=== PATIENT | male | born 1945 | race Caucasian/White ===

== ENCOUNTER 2023-05-23 13:44 | Inpatient (IN) | payer MEDICARE, BC ==
[~2023-05-23] VITALS: Ht 185.4 cm; Wt 73.5 kg
[2023-05-23] MEDS ORDERED: MIRA50TA PO (14:03)
[2023-05-23] MEDS ORDERED: CLON1TAB12 PO (14:03)
[2023-05-23] MEDS ORDERED: DULO60CA45 PO (14:03)
[2023-05-23] MEDS ORDERED: DIVA-78 PO (14:03)
[2023-05-23] MEDS ORDERED: THIA50TA10 PO (14:03)
[2023-05-23 14:16] LABS: BASOPHILS % (AUTO) 0.6 % (0.0-2.0); EOSINOPHILS % (AUTO) 0.5 % (0.0-7.0); HEMATOCRIT 41.4 % (36.7-47.1); HEMOGLOBIN 14.2 g/dL (12.5-16.3); LYMPHOCYTES # (AUTO) 0.3 K/uL (0.8-4.8); LYMPHOCYTES % (AUTO) 9.6 % (20.5-51.5); MEAN CORPUSCULAR HEMOGLOBIN 31.4 uug (23.8-33.4); MEAN CORPUSCULAR HGB CONC 34 g/dL (32.5-36.3); MEAN CORPUSCULAR VOLUME 91.7 fL (73.0-96.2); MONOCYTES # (AUTO) 0.5 K/uL (0.1-1.30); NEUTROPHILS # (AUTO) 2.5 K/uL (1.8-8.9); NEUTROPHILS % (AUTO) 75.3 % (38.5-71.5); PLATELET COUNT (AUTO) 90 K/uL (152-348); RED BLOOD CELL COUNT(AUTO) 4.52 MIL/uL (4.06-5.63); RED CELL DISTRIBUTION WIDTH 15.4 % (12.1-16.2); WHITE BLOOD COUNT (AUTO) 3.3 K/uL (3.6-10.2)
[2023-05-23 14:18] LABS: DIFFERENTIAL COMMENT 1
[2023-05-23 14:31] LABS: CALCIUM 9.2 mg/dL (8.5-10.1); CARBON DIOXIDE 26 mmol/L (21-32); CHLORIDE 108 mmol/L (98-107); CREATININE 0.9 mg/dL (0.6-1.3); GLUCOSE 108 mg/dL (74-106); SODIUM SERUM 143 mmol/L (136-145); UREA NITROGEN, BLOOD 20 mg/dL (7-18)
[2023-05-23 14:43] LABS: ETHANOL < 3 MG/DL (0-10)
[2023-05-23 14:45] LABS: ALANINE AMINOTRANSFERASE 34 U/L (16-63); ALBUMIN 3.6 g/dL (3.4-5.0); ALKALINE PHOSPHATASE 73 U/L (50-136); ASPARTATE AMINOTRANSFERASE 34 U/L (15-37); BILIRUBIN,DIRECT 0.4 mg/dL (0.0-0.2); BILIRUBIN,TOTAL 1.6 mg/dL (0.2-1.0); TOTAL PROTEIN, SERUM 6.4 g/dL (6.4-8.2)
[2023-05-23 14:46] LABS: THYROID STIMULATING HORMONE 1.634 mIU/mL (0.358-3.740)
[2023-05-23] MEDS ORDERED: diphenhydrAMINE 50 MG/1 ML VIAL ONE (16:14)
[2023-05-23] MEDS ORDERED: HALOPERIDOL LACTATE 5 MG/1 ML VIAL ONE (16:14)
[2023-05-23] MEDS ORDERED: LORAZEPAM 2 MG/1 ML VIAL ONE (16:14)
[2023-05-23] MEDS ORDERED: LORAZEPAM 2 MG/1 ML VIAL IM ONE (16:15)
[2023-05-23] MEDS ORDERED: HALOPERIDOL LACTATE 5 MG/1 ML VIAL IM ONE (16:15)
[2023-05-23] MEDS ORDERED: diphenhydrAMINE 50 MG/1 ML VIAL IM ONE (16:15)
[2023-05-23 21:45] VITALS: BP 135/76; TEMP 97.6; O2SAT 98
[2023-05-23] MEDS ORDERED: MAG HYDROX/AL HYDROX/SIMETH 30 ML LIQUID UDC PO PRN (22:15)
[2023-05-23] MEDS ORDERED: MAGNESIUM HYDROXIDE 30 ML LIQUID UDC PO PRN (22:15)
[2023-05-23] MEDS ORDERED: CLOP75TA33 PO (22:42)
[2023-05-23] MEDS ORDERED: EZET10TA15 PO (22:42)
[2023-05-23] MEDS ORDERED: ATOR80TA PO (22:42)
[2023-05-23] MEDS ORDERED: TAMS-3 PO (22:42)
[2023-05-23] MEDS ORDERED: ASPI-495 PO (22:42)
[2023-05-23] MEDS: CLONAZEPAM 0.5 MG TABLET PO PRN (23:20)
[2023-05-24] MEDS: TEMAZEPAM 7.5 MG CAPSULE PO PRN (01:25)
[2023-05-24 07:55] VITALS: BP 198/173; TEMP 98.2; O2SAT 98
[2023-05-24] MEDS: CLONAZEPAM 0.5 MG TABLET PO PRN (08:56)
[2023-05-24] MEDS: hydrALAZINE HCL 25 MG TABLET PO PRN ×2 (08:57→09:31)
[2023-05-24] MEDS: CLONAZEPAM 1 MG TABLET PO SCH ×2 (09:30→16:58)
[2023-05-24] MEDS: ACETAMINOPHEN 325 MG TABLET PO PRN (09:31)
[2023-05-24] MEDS: DULOXETINE 60 MG CAPSULE.DR PO SCH (10:20)
[2023-05-24] MEDS: DIVALPROEX SPRINKLE 125 MG CAP.SPRINK PO SCH ×2 (10:20→20:51)
[2023-05-24 15:16] VITALS: BP 102/72; TEMP 98.2; O2SAT 96
[2023-05-24 19:57] VITALS: BP 136/76; TEMP 98.1; O2SAT 96
[2023-05-24] MEDS: OLANZAPINE ZYDIS 5 MG TAB.RAPDIS PO SCH (20:51)
[2023-05-24] MEDS: DONEPEZIL 5 MG TABLET PO SCH (20:51)
[2023-05-24] MEDS: ATORVASTATIN 40 MG TABLET PO SCH (20:52)
[2023-05-25] MEDS: TEMAZEPAM 7.5 MG CAPSULE PO PRN ×2 (00:01→21:53)
[2023-05-25 08:17] VITALS: BP 126/66; TEMP 97.2; O2SAT 97
[2023-05-25] MEDS ORDERED: Medication Not On Formulary EA (Mirabegron (Myrbetriq) 50 MG) PO SCH (09:00)
[2023-05-25] MEDS ORDERED: ASPIRIN EC 81 MG TABLET.DR PO SCH (09:00)
[2023-05-25] MEDS ORDERED: CLOPIDOGREL 75 MG TABLET PO SCH (09:00)
[2023-05-25] MEDS: THIAMINE HCL 100 MG TABLET PO SCH (09:06)
[2023-05-25] MEDS: DULOXETINE 60 MG CAPSULE.DR PO SCH (09:06)
[2023-05-25] MEDS: DIVALPROEX SPRINKLE 125 MG CAP.SPRINK PO SCH ×2 (09:06→20:47)
[2023-05-25] MEDS: CLONAZEPAM 1 MG TABLET PO SCH ×2 (09:07→17:45)
[2023-05-25] MEDS: EZETIMIBE 10 MG TABLET PO SCH (09:07)
[2023-05-25] MEDS: TOLTERODINE LA 2 MG CAP.SR.24H PO SCH (09:19)
[2023-05-25 16:01] VITALS: BP 125/71; TEMP 97.6; O2SAT 97
[2023-05-25 20:07] VITALS: BP 136/66; TEMP 98.1; O2SAT 96
[2023-05-25] MEDS: ATORVASTATIN 40 MG TABLET PO SCH (20:48)
[2023-05-25] MEDS: TAMSULOSIN HCL 0.4 MG CAP.SR.24H PO SCH (20:48)
[2023-05-25] MEDS: OLANZAPINE ZYDIS 5 MG TAB.RAPDIS PO SCH (20:48)
[2023-05-25] MEDS: DONEPEZIL 5 MG TABLET PO SCH (21:17)
[2023-05-26] MEDS: ACETAMINOPHEN 325 MG TABLET PO PRN (03:31)
[2023-05-26] MEDS: CLONAZEPAM 0.5 MG TABLET PO PRN ×2 (03:31→19:34)
[2023-05-26 06:44] LABS: BASOPHILS % (AUTO) 0.3 % (0.0-2.0); EOSINOPHILS % (AUTO) 0.1 % (0.0-7.0); HEMATOCRIT 41.8 % (36.7-47.1); HEMOGLOBIN 14.8 g/dL (12.5-16.3); LYMPHOCYTES # (AUTO) 0.8 K/uL (0.8-4.8); LYMPHOCYTES % (AUTO) 9.2 % (20.5-51.5); MEAN CORPUSCULAR HEMOGLOBIN 32.4 uug (23.8-33.4); MEAN CORPUSCULAR HGB CONC 35 g/dL (32.5-36.3); MEAN CORPUSCULAR VOLUME 91.5 fL (73.0-96.2); MONOCYTES # (AUTO) 1.6 K/uL (0.1-1.30); MONOCYTES % (AUTO) 17.9 % (0.0-11.0); NEUTROPHILS # (AUTO) 6.4 K/uL (1.8-8.9); NEUTROPHILS % (AUTO) 72.5 % (38.5-71.5); PLATELET COUNT (AUTO) 100 K/uL (152-348); RED BLOOD CELL COUNT(AUTO) 4.57 MIL/uL (4.06-5.63); RED CELL DISTRIBUTION WIDTH 15.9 % (12.1-16.2); WHITE BLOOD COUNT (AUTO) 8.9 K/uL (3.6-10.2)
[2023-05-26 06:49] LABS: DIFFERENTIAL COMMENT 1
[2023-05-26 07:42] VITALS: BP 115/74; TEMP 98.2; O2SAT 96
[2023-05-26] MEDS: CLOPIDOGREL 75 MG TABLET PO SCH (09:00)
[2023-05-26] MEDS: DIVALPROEX SPRINKLE 125 MG CAP.SPRINK PO SCH ×2 (09:45→20:56)
[2023-05-26] MEDS: TOLTERODINE LA 2 MG CAP.SR.24H PO SCH (09:45)
[2023-05-26] MEDS: ASPIRIN EC 81 MG TABLET.DR PO SCH (09:46)
[2023-05-26] MEDS: DULOXETINE 60 MG CAPSULE.DR PO SCH (09:46)
[2023-05-26] MEDS: THIAMINE HCL 100 MG TABLET PO SCH (09:46)
[2023-05-26] MEDS: EZETIMIBE 10 MG TABLET PO SCH (09:48)
[2023-05-26 10:21] LABS: ANISOCYTOSIS 1+; BAND % (MANUAL) 2 % (0-10); LYMPHOCYTES % (MANUAL) 9 % (20-40); MONOCYTES % (MANUAL) 18 % (2-10); NEUTROPHILS % (MANUAL) 71 % (42-75); PLATELET ESTIMATE DECREASED
[2023-05-26 10:22] LABS: OVALOCYTES OCC
[2023-05-26 16:48] VITALS: BP 110/71; TEMP 98; O2SAT 97
[2023-05-26 20:14] VITALS: BP 122/69; TEMP 98; O2SAT 98
[2023-05-26] MEDS: CLONAZEPAM 1 MG TABLET PO SCH (20:55)
[2023-05-26] MEDS: ATORVASTATIN 40 MG TABLET PO SCH (20:56)
[2023-05-26] MEDS: OLANZAPINE ZYDIS 5 MG TAB.RAPDIS PO SCH (20:56)
[2023-05-26] MEDS: TAMSULOSIN HCL 0.4 MG CAP.SR.24H PO SCH (20:56)
[2023-05-26] MEDS: DONEPEZIL 5 MG TABLET PO SCH (20:56)
[2023-05-26] MEDS ORDERED: CLONAZEPAM 1 MG TABLET PO SCH (21:00)
[2023-05-26] MEDS: TEMAZEPAM 7.5 MG CAPSULE PO PRN (22:49)
[2023-05-27] MEDS: CLONAZEPAM 0.5 MG TABLET PO PRN ×2 (00:58→17:00)
[2023-05-27 07:45] LABS: BASOPHILS % (AUTO) 0.5 % (0.0-2.0); DIFFERENTIAL COMMENT 0; EOSINOPHILS % (AUTO) 0.3 % (0.0-7.0); HEMATOCRIT 41.1 % (36.7-47.1); HEMOGLOBIN 14.5 g/dL (12.5-16.3); LYMPHOCYTES # (AUTO) 0.7 K/uL (0.8-4.8); LYMPHOCYTES % (AUTO) 11.1 % (20.5-51.5); MEAN CORPUSCULAR HEMOGLOBIN 32.3 uug (23.8-33.4); MEAN CORPUSCULAR HGB CONC 35 g/dL (32.5-36.3); MEAN CORPUSCULAR VOLUME 91.3 fL (73.0-96.2); MONOCYTES # (AUTO) 1.3 K/uL (0.1-1.30); MONOCYTES % (AUTO) 20.7 % (0.0-11.0); NEUTROPHILS # (AUTO) 4.3 K/uL (1.8-8.9); NEUTROPHILS % (AUTO) 67.4 % (38.5-71.5); PLATELET COUNT (AUTO) 88 K/uL (152-348); RED CELL DISTRIBUTION WIDTH 15.6 % (12.1-16.2); WHITE BLOOD COUNT (AUTO) 6.4 K/uL (3.6-10.2)
[2023-05-27 07:54] VITALS: BP 126/71; TEMP 98.3; O2SAT 96
[2023-05-27] MEDS: ASPIRIN EC 81 MG TABLET.DR PO SCH (08:42)
[2023-05-27] MEDS: THIAMINE HCL 100 MG TABLET PO SCH (08:42)
[2023-05-27] MEDS: DIVALPROEX SPRINKLE 125 MG CAP.SPRINK PO SCH ×2 (08:42→20:45)
[2023-05-27] MEDS: CLOPIDOGREL 75 MG TABLET PO SCH (08:42)
[2023-05-27] MEDS: EZETIMIBE 10 MG TABLET PO SCH (08:42)
[2023-05-27] MEDS: TOLTERODINE LA 2 MG CAP.SR.24H PO SCH (08:42)
[2023-05-27] MEDS: DULOXETINE 60 MG CAPSULE.DR PO SCH (08:42)
[2023-05-27] MEDS: ACETAMINOPHEN 325 MG TABLET PO PRN (09:45)
[2023-05-27 10:41] LABS: ANISOCYTOSIS 1+; LYMPHOCYTES % (MANUAL) 13 % (20-40); MONOCYTES % (MANUAL) 16 % (2-10); NEUTROPHILS % (MANUAL) 71 % (42-75); PLATELET ESTIMATE MARKED DECREASED
[2023-05-27 16:03] VITALS: BP 117/75; TEMP 98.2; O2SAT 97
[2023-05-27 19:49] VITALS: BP 124/74; TEMP 98; O2SAT 96
[2023-05-27] MEDS: CLONAZEPAM 1 MG TABLET PO SCH (20:46)
[2023-05-27] MEDS: DONEPEZIL 5 MG TABLET PO SCH (20:46)
[2023-05-27] MEDS: OLANZAPINE ZYDIS 5 MG TAB.RAPDIS PO SCH (20:46)
[2023-05-27] MEDS: TAMSULOSIN HCL 0.4 MG CAP.SR.24H PO SCH (20:46)
[2023-05-27] MEDS: ATORVASTATIN 40 MG TABLET PO SCH (20:47)
[2023-05-28 08:03] LABS: BASOPHILS % (AUTO) 0.3 % (0.0-2.0); EOSINOPHILS % (AUTO) 0.7 % (0.0-7.0); HEMATOCRIT 40.7 % (36.7-47.1); HEMOGLOBIN 14.2 g/dL (12.5-16.3); LYMPHOCYTES # (AUTO) 0.7 K/uL (0.8-4.8); LYMPHOCYTES % (AUTO) 11.4 % (20.5-51.5); MEAN CORPUSCULAR HGB CONC 35 g/dL (32.5-36.3); MEAN CORPUSCULAR VOLUME 91.9 fL (73.0-96.2); MONOCYTES # (AUTO) 1.3 K/uL (0.1-1.30); NEUTROPHILS # (AUTO) 4.3 K/uL (1.8-8.9); NEUTROPHILS % (AUTO) 66.6 % (38.5-71.5); PLATELET COUNT (AUTO) 102 K/uL (152-348); RED BLOOD CELL COUNT(AUTO) 4.43 MIL/uL (4.06-5.63); RED CELL DISTRIBUTION WIDTH 15.9 % (12.1-16.2); WHITE BLOOD COUNT (AUTO) 6.4 K/uL (3.6-10.2)
[2023-05-28 08:06] LABS: DIFFERENTIAL COMMENT 1
[2023-05-28] MEDS: TOLTERODINE LA 2 MG CAP.SR.24H PO SCH (08:12)
[2023-05-28] MEDS: EZETIMIBE 10 MG TABLET PO SCH (08:12)
[2023-05-28] MEDS: DIVALPROEX SPRINKLE 125 MG CAP.SPRINK PO SCH ×2 (08:13→20:25)
[2023-05-28] MEDS: DULOXETINE 60 MG CAPSULE.DR PO SCH (08:13)
[2023-05-28] MEDS: THIAMINE HCL 100 MG TABLET PO SCH (08:13)
[2023-05-28] MEDS: ENSURE ENLIVE (VAN) 240 ML LIQUID PO SCH (08:13)
[2023-05-28] MEDS: CLONAZEPAM 0.5 MG TABLET PO PRN ×2 (08:17→20:25)
[2023-05-28 08:28] VITALS: BP 106/70; TEMP 98.2; O2SAT 98
[2023-05-28 15:30] VITALS: BP 105/74; TEMP 97.8; O2SAT 98
[2023-05-28 20:00] VITALS: BP 124/70; TEMP 98; O2SAT 96
[2023-05-28] MEDS: ATORVASTATIN 40 MG TABLET PO SCH (20:25)
[2023-05-28] MEDS: DONEPEZIL 5 MG TABLET PO SCH (20:25)
[2023-05-28] MEDS: TAMSULOSIN HCL 0.4 MG CAP.SR.24H PO SCH (20:25)
[2023-05-28] MEDS: OLANZAPINE ZYDIS 5 MG TAB.RAPDIS PO SCH (20:25)
[2023-05-28] MEDS: CLONAZEPAM 1 MG TABLET PO SCH (21:08)
[2023-05-29 07:51] VITALS: BP 101/56; TEMP 98.2; O2SAT 98
[2023-05-29] MEDS: TOLTERODINE LA 2 MG CAP.SR.24H PO SCH (08:10)
[2023-05-29] MEDS: THIAMINE HCL 100 MG TABLET PO SCH (08:10)
[2023-05-29] MEDS: DIVALPROEX SPRINKLE 125 MG CAP.SPRINK PO SCH (08:10)
[2023-05-29] MEDS: DULOXETINE 60 MG CAPSULE.DR PO SCH (08:10)
[2023-05-29] MEDS: EZETIMIBE 10 MG TABLET PO SCH (08:10)
[2023-05-29] MEDS: ENSURE ENLIVE (VAN) 240 ML LIQUID PO SCH (09:00)
[2023-05-29] MEDS ORDERED: CLOPIDOGREL 75 MG TABLET PO SCH (09:00)
[2023-05-29] MEDS ORDERED: DONE5TAB34 PO (14:23)
[2023-05-29] MEDS ORDERED: HYDR-894 PO (14:24)
[2023-05-29] MEDS ORDERED: TEMA7.5C PO (14:28)
[2023-05-29] MEDS ORDERED: DIVA125C2 PO (14:29)
[2023-05-29] MEDS ORDERED: DULO60CA64 PO (14:31)
[2023-05-29] MEDS ORDERED: OLAN5TAB6 PO (14:33)
[2023-05-29] MEDS ORDERED: CLON1TAB PO (14:37)
[2023-05-29] MEDS ORDERED: CLON0.5T PO (14:37)
[2023-05-30 12:52] LABS: NEUTROPHILS % (MANUAL) 59 % (42-75)
[2023-05-30 12:53] LABS: BAND % (MANUAL) 4 % (0-10); EOSINOPHILS % (MANUAL) 1 % (0-8); LYMPHOCYTES % (MANUAL) 9 % (20-40); MONOCYTES % (MANUAL) 14 % (2-10); PLATELET ESTIMATE DECREASED
[2023-05-30 12:55] LABS: LYMPHOCYTES % (MANUAL) 0 % (20-40); NEUTROPHILS % (MANUAL) 0 % (42-75)
== END 2023-05-29 12:15 | disposition short-term general hospital (02) | DRG 885 ==
LOC: ER 13:44 → GPS 21:27
PROVIDERS: ADMIT Psychiatry & Neurology Psychiatry; ATTEND Nurse Practitioner Acute Care
DX: F29 Unspecified psychosis not due to a substance or known physiological condition (principal); G93.41 Metabolic encephalopathy; E51.2 Wernicke's encephalopathy; R45.851 Suicidal ideations; F03.94 Unspecified dementia, unspecified severity, with anxiety; F03.93 Unspecified dementia, unspecified severity, with mood disturbance; F10.11 Alcohol abuse, in remission; E78.5 Hyperlipidemia, unspecified; I25.10 Atherosclerotic heart disease of native coronary artery without angina pectoris; N40.0 Benign prostatic hyperplasia without lower urinary tract symptoms; R26.81 Unsteadiness on feet; R79.89 Other specified abnormal findings of blood chemistry; Z95.5 Presence of coronary angioplasty implant and graft; I10 Essential (primary) hypertension; Z87.820 Personal history of traumatic brain injury; Z91.040 Latex allergy status; Z79.82 Long term (current) use of aspirin; Z79.02 Long term (current) use of antithrombotics/antiplatelets; Z79.899 Other long term (current) drug therapy
CPT/HCPCS: 36415; 70030-TC; 70450; 72170; 73130; 82747; 83921; 84443; 85014; 85025; 85651; 93005; G0480; J1200; J1630; J2060

== ENCOUNTER 2023-05-29 12:26 | Inpatient (IN) | payer MEDICARE, BC ==
[~2023-05-29] VITALS: Ht 185.4 cm; Wt 73.5 kg
[~2023-05-29 12:26] MED LIST: ASPI-495 PO; ATOR80TA PO; CLOP75TA33 PO; EZET10TA15 PO; MIRA50TA PO; TAMS-3 PO; THIA50TA10 PO
[2023-05-29] MEDS ORDERED: MAG HYDROX/AL HYDROX/SIMETH 30 ML LIQUID UDC PO PRN (13:15)
[2023-05-29] MEDS ORDERED: TEMAZEPAM 7.5 MG CAPSULE PO PRN ×2 (13:15→13:45)
[2023-05-29] MEDS ORDERED: ACETAMINOPHEN 325 MG TABLET PO PRN ×2 (13:15→14:15)
[2023-05-29] MEDS ORDERED: MAGNESIUM HYDROXIDE 30 ML LIQUID UDC PO PRN (13:15)
[2023-05-29] MEDS ORDERED: ONDANSETRON 4 MG/2 ML VIAL IV PRN (14:15)
[2023-05-29] MEDS ORDERED: REMEDY ESSENTIAL ZINC PASTE 113 GM TP PRN (14:15)
[2023-05-29] MEDS ORDERED: DONE5TAB34 PO (14:23)
[2023-05-29] MEDS ORDERED: HYDR-894 PO (14:24)
[2023-05-29] MEDS ORDERED: TEMA7.5C PO (14:28)
[2023-05-29] MEDS ORDERED: DIVA125C2 PO (14:29)
[2023-05-29] MEDS ORDERED: DULO60CA64 PO (14:31)
[2023-05-29] MEDS ORDERED: OLAN5TAB6 PO (14:33)
[2023-05-29] MEDS ORDERED: CLON0.5T PO (14:37)
[2023-05-29] MEDS ORDERED: CLON1TAB PO (14:37)
[2023-05-29 16:00] VITALS: BP 108/73; TEMP 98; O2SAT 97
[2023-05-29] MEDS ORDERED: hydrALAZINE HCL 25 MG TABLET PO PRN (16:00)
[2023-05-29] MEDS: CLONAZEPAM 0.5 MG TABLET PO PRN (18:22)
[2023-05-29 20:40] VITALS: BP 111/64; TEMP 97.3; O2SAT 92
[2023-05-29] MEDS: OLANZAPINE ZYDIS 5 MG TAB.RAPDIS PO SCH (20:53)
[2023-05-29] MEDS: DIVALPROEX SPRINKLE 125 MG CAP.SPRINK PO SCH (20:53)
[2023-05-29] MEDS: DONEPEZIL 5 MG TABLET PO SCH (20:53)
[2023-05-29] MEDS: TAMSULOSIN HCL 0.4 MG CAP.SR.24H PO SCH (20:53)
[2023-05-29] MEDS: CLONAZEPAM 1 MG TABLET PO SCH (20:53)
[2023-05-29] MEDS: ATORVASTATIN 40 MG TABLET PO SCH (20:53)
[2023-05-30 04:00] VITALS: BP 113/61; TEMP 97.5; O2SAT 93
[2023-05-30 07:15] LABS: BASOPHILS % (AUTO) 0.2 % (0.0-2.0); EOSINOPHILS % (AUTO) 0.5 % (0.0-7.0); HEMATOCRIT 34.6 % (36.7-47.1); HEMOGLOBIN 12.2 g/dL (12.5-16.3); LYMPHOCYTES # (AUTO) 0.8 K/uL (0.8-4.8); LYMPHOCYTES % (AUTO) 10.8 % (20.5-51.5); MEAN CORPUSCULAR HEMOGLOBIN 32.5 uug (23.8-33.4); MEAN CORPUSCULAR HGB CONC 35 g/dL (32.5-36.3); MEAN CORPUSCULAR VOLUME 92.3 fL (73.0-96.2); MONOCYTES # (AUTO) 1.7 K/uL (0.1-1.30); MONOCYTES % (AUTO) 22.7 % (0.0-11.0); NEUTROPHILS # (AUTO) 5.1 K/uL (1.8-8.9); NEUTROPHILS % (AUTO) 65.8 % (38.5-71.5); PLATELET COUNT (AUTO) 94 K/uL (152-348); RED BLOOD CELL COUNT(AUTO) 3.75 MIL/uL (4.06-5.63); RED CELL DISTRIBUTION WIDTH 15.5 % (12.1-16.2); WHITE BLOOD COUNT (AUTO) 7.7 K/uL (3.6-10.2)
[2023-05-30 07:27] LABS: CARBON DIOXIDE 32 mmol/L (21-32); CHLORIDE 112 mmol/L (98-107); CREATININE 0.7 mg/dL (0.6-1.3); GLUCOSE 94 mg/dL (74-106); MAGNESIUM 2.4 mg/dL (1.8-2.4); PHOSPHOROUS 2.9 mg/dL (2.5-4.9); POTASSIUM 3.6 mmol/L (3.5-5.1); SODIUM SERUM 147 mmol/L (136-145); UREA NITROGEN, BLOOD 36 mg/dL (7-18)
[2023-05-30 07:28] LABS: DIFFERENTIAL COMMENT 1
[2023-05-30 07:57] LABS: CALCIUM 9.2 mg/dL (8.5-10.1)
[2023-05-30] MEDS: TOLTERODINE LA 2 MG CAP.SR.24H PO SCH (08:57)
[2023-05-30] MEDS: THIAMINE HCL 100 MG TABLET PO SCH (08:57)
[2023-05-30] MEDS: DIVALPROEX SPRINKLE 125 MG CAP.SPRINK PO SCH ×2 (08:57→21:19)
[2023-05-30] MEDS: EZETIMIBE 10 MG TABLET PO SCH (08:57)
[2023-05-30] MEDS: ENSURE CLEAR 240 ML LIQUID (MIX BERRY) PO SCH (08:57)
[2023-05-30] MEDS: DULOXETINE 60 MG CAPSULE.DR PO SCH (08:57)
[2023-05-30] MEDS ORDERED: CLOPIDOGREL 75 MG TABLET PO SCH ×2 (09:00)
[2023-05-30] MEDS ORDERED: LORAZEPAM 1 MG TABLET PO ONE (09:15)
[2023-05-30 12:56] LABS: BAND % (MANUAL) 4 % (0-10); EOSINOPHILS % (MANUAL) 1 % (0-8); LYMPHOCYTES % (MANUAL) 9 % (20-40); MONOCYTES % (MANUAL) 14 % (2-10); NEUTROPHILS % (MANUAL) 59 % (42-75)
[2023-05-30 12:57] LABS: PLATELET ESTIMATE DECREASED
[2023-05-30] MEDS: CLONAZEPAM 0.5 MG TABLET PO PRN (13:27)
[2023-05-30 15:22] VITALS: BP 109/45; TEMP 98.2; O2SAT 98
[2023-05-30 20:00] VITALS: BP 109/58; TEMP 98.3; O2SAT 93
[2023-05-30] MEDS: OLANZAPINE ZYDIS 5 MG TAB.RAPDIS PO SCH (21:18)
[2023-05-30] MEDS: TAMSULOSIN HCL 0.4 MG CAP.SR.24H PO SCH (21:18)
[2023-05-30] MEDS: ATORVASTATIN 40 MG TABLET PO SCH (21:18)
[2023-05-30] MEDS: CLONAZEPAM 1 MG TABLET PO SCH (21:18)
[2023-05-30] MEDS: DONEPEZIL 5 MG TABLET PO SCH (21:18)
[2023-05-31 04:00] VITALS: BP 111/56; TEMP 98.2; O2SAT 93
[2023-05-31 07:30] LABS: BASOPHILS % (AUTO) 0.3 % (0.0-2.0); EOSINOPHILS % (AUTO) 0.3 % (0.0-7.0); HEMATOCRIT 36.4 % (36.7-47.1); HEMOGLOBIN 12.8 g/dL (12.5-16.3); LYMPHOCYTES # (AUTO) 1.1 K/uL (0.8-4.8); MEAN CORPUSCULAR HEMOGLOBIN 32.7 uug (23.8-33.4); MEAN CORPUSCULAR HGB CONC 35 g/dL (32.5-36.3); MONOCYTES # (AUTO) 2.3 K/uL (0.1-1.30); MONOCYTES % (AUTO) 22.2 % (0.0-11.0); NEUTROPHILS # (AUTO) 6.7 K/uL (1.8-8.9); NEUTROPHILS % (AUTO) 66.2 % (38.5-71.5); PLATELET COUNT (AUTO) 108 K/uL (152-348); RED BLOOD CELL COUNT(AUTO) 3.91 MIL/uL (4.06-5.63); RED CELL DISTRIBUTION WIDTH 15.8 % (12.1-16.2); WHITE BLOOD COUNT (AUTO) 10.2 K/uL (3.6-10.2)
[2023-05-31 07:38] LABS: CALCIUM 8.6 mg/dL (8.5-10.1); CARBON DIOXIDE 30 mmol/L (21-32); CHLORIDE 113 mmol/L (98-107); CREATININE 0.7 mg/dL (0.6-1.3); GLUCOSE 83 mg/dL (74-106); MAGNESIUM 2.3 mg/dL (1.8-2.4); PHOSPHOROUS 2.9 mg/dL (2.5-4.9); POTASSIUM 3.4 mmol/L (3.5-5.1); SODIUM SERUM 146 mmol/L (136-145); UREA NITROGEN, BLOOD 30 mg/dL (7-18)
[2023-05-31 07:39] LABS: DIFFERENTIAL COMMENT 1
[2023-05-31 08:14] LABS: LYMPHOCYTES % (MANUAL) 0 % (20-40); NEUTROPHILS % (MANUAL) 0 % (42-75)
[2023-05-31] MEDS: THIAMINE HCL 100 MG TABLET PO SCH (08:44)
[2023-05-31] MEDS: DULOXETINE 60 MG CAPSULE.DR PO SCH (08:44)
[2023-05-31] MEDS: TOLTERODINE LA 2 MG CAP.SR.24H PO SCH (08:44)
[2023-05-31] MEDS: EZETIMIBE 10 MG TABLET PO SCH (08:44)
[2023-05-31] MEDS: DIVALPROEX SPRINKLE 125 MG CAP.SPRINK PO SCH ×2 (08:45→21:26)
[2023-05-31] MEDS: ENSURE CLEAR 240 ML LIQUID (MIX BERRY) PO SCH (08:46)
[2023-05-31] MEDS ORDERED: POTASSIUM CHLORIDE 20 MEQ TAB.PRT.SR PO ONE (11:00)
[2023-05-31 11:14] VITALS: BP 126/68; TEMP 98.5; O2SAT 95
[2023-05-31] MEDS ORDERED: GADOTERATE MEGLUMINE 10 MMOL/20 ML VIAL IV ONE (14:44)
[2023-05-31 16:20] VITALS: BP 116/62; TEMP 98.7; O2SAT 94
[2023-05-31] MEDS: ENSURE ENLIVE (VAN) 240 ML LIQUID PO SCH (17:45)
[2023-05-31 20:05] VITALS: BP 107/51; TEMP 97.6; O2SAT 94
[2023-05-31] MEDS: DONEPEZIL 5 MG TABLET PO SCH (21:26)
[2023-05-31] MEDS: OLANZAPINE ZYDIS 5 MG TAB.RAPDIS PO SCH (21:26)
[2023-05-31] MEDS: ATORVASTATIN 40 MG TABLET PO SCH (21:26)
[2023-05-31] MEDS: TAMSULOSIN HCL 0.4 MG CAP.SR.24H PO SCH (21:26)
[2023-05-31] MEDS: CLONAZEPAM 1 MG TABLET PO SCH (21:27)
[2023-06-01 04:05] VITALS: BP 102/60; TEMP 98.2; O2SAT 90
[2023-06-01 06:37] LABS: BASOPHILS % (AUTO) 0.3 % (0.0-2.0); EOSINOPHILS # (AUTO) 0.1 K/uL (0.0-0.7); EOSINOPHILS % (AUTO) 0.8 % (0.0-7.0); HEMATOCRIT 34.3 % (36.7-47.1); HEMOGLOBIN 12.3 g/dL (12.5-16.3); LYMPHOCYTES # (AUTO) 1.1 K/uL (0.8-4.8); LYMPHOCYTES % (AUTO) 14.1 % (20.5-51.5); MEAN CORPUSCULAR HGB CONC 36 g/dL (32.5-36.3); MONOCYTES # (AUTO) 1.7 K/uL (0.1-1.30); MONOCYTES % (AUTO) 22.6 % (0.0-11.0); NEUTROPHILS # (AUTO) 4.7 K/uL (1.8-8.9); NEUTROPHILS % (AUTO) 62.2 % (38.5-71.5); PLATELET COUNT (AUTO) 111 K/uL (152-348); RED BLOOD CELL COUNT(AUTO) 3.73 MIL/uL (4.06-5.63); RED CELL DISTRIBUTION WIDTH 15.4 % (12.1-16.2); WHITE BLOOD COUNT (AUTO) 7.6 K/uL (3.6-10.2)
[2023-06-01 06:38] LABS: DIFFERENTIAL COMMENT 1
[2023-06-01 06:49] LABS: CALCIUM 8.1 mg/dL (8.5-10.1); CARBON DIOXIDE 31 mmol/L (21-32); CHLORIDE 110 mmol/L (98-107); CREATININE 0.7 mg/dL (0.6-1.3); GLUCOSE 98 mg/dL (74-106); POTASSIUM 3.4 mmol/L (3.5-5.1); SODIUM SERUM 143 mmol/L (136-145); UREA NITROGEN, BLOOD 28 mg/dL (7-18)
[2023-06-01 06:50] LABS: MAGNESIUM 2.2 mg/dL (1.8-2.4)
[2023-06-01 06:51] LABS: LYMPHOCYTES % (MANUAL) 0 % (20-40); NEUTROPHILS % (MANUAL) 0 % (42-75)
[2023-06-01] MEDS: ENSURE ENLIVE (VAN) 240 ML LIQUID PO SCH ×2 (09:17→17:34)
[2023-06-01] MEDS: TOLTERODINE LA 2 MG CAP.SR.24H PO SCH (09:17)
[2023-06-01] MEDS: DIVALPROEX SPRINKLE 125 MG CAP.SPRINK PO SCH ×2 (09:17→20:47)
[2023-06-01] MEDS: EZETIMIBE 10 MG TABLET PO SCH (09:17)
[2023-06-01] MEDS: THIAMINE HCL 100 MG TABLET PO SCH (09:17)
[2023-06-01] MEDS ORDERED: POTASSIUM CHLORIDE 20 MEQ TAB.PRT.SR PO ONE (10:00)
[2023-06-01 11:34] VITALS: BP 102/56; TEMP 98.2; O2SAT 95
[2023-06-01 16:00] VITALS: BP 109/62; TEMP 98.2; O2SAT 96
[2023-06-01 20:00] VITALS: BP 125/56; TEMP 98; O2SAT 96
[2023-06-01] MEDS: CLONAZEPAM 1 MG TABLET PO SCH (20:47)
[2023-06-01] MEDS: OLANZAPINE ZYDIS 5 MG TAB.RAPDIS PO SCH (20:47)
[2023-06-01] MEDS: DONEPEZIL 5 MG TABLET PO SCH (20:47)
[2023-06-01] MEDS: ATORVASTATIN 40 MG TABLET PO SCH (20:47)
[2023-06-01] MEDS: TAMSULOSIN HCL 0.4 MG CAP.SR.24H PO SCH (20:47)
[2023-06-02] MEDS: IV 1/2NS 1000 ML 1,000 ML IV PRN (02:01)
[2023-06-02 04:00] VITALS: BP 127/62; TEMP 98.2; O2SAT 95
[2023-06-02 06:36] LABS: BASOPHILS # (AUTO) 0.1 K/UL (0.0-0.2); BASOPHILS % (AUTO) 1.7 % (0.0-2.0); EOSINOPHILS # (AUTO) 0.1 K/uL (0.0-0.7); EOSINOPHILS % (AUTO) 1.9 % (0.0-7.0); HEMATOCRIT 34.9 % (36.7-47.1); HEMOGLOBIN 12.5 g/dL (12.5-16.3); LYMPHOCYTES # (AUTO) 0.6 K/uL (0.8-4.8); LYMPHOCYTES % (AUTO) 9.6 % (20.5-51.5); MEAN CORPUSCULAR HEMOGLOBIN 32.6 uug (23.8-33.4); MEAN CORPUSCULAR HGB CONC 36 g/dL (32.5-36.3); MONOCYTES # (AUTO) 1.4 K/uL (0.1-1.30); MONOCYTES % (AUTO) 21.2 % (0.0-11.0); NEUTROPHILS # (AUTO) 4.2 K/uL (1.8-8.9); NEUTROPHILS % (AUTO) 65.6 % (38.5-71.5); PLATELET COUNT (AUTO) 120 K/uL (152-348); RED BLOOD CELL COUNT(AUTO) 3.84 MIL/uL (4.06-5.63); RED CELL DISTRIBUTION WIDTH 15.7 % (12.1-16.2); WHITE BLOOD COUNT (AUTO) 6.4 K/uL (3.6-10.2)
[2023-06-02 06:48] LABS: DIFFERENTIAL COMMENT 1
[2023-06-02 07:06] LABS: CALCIUM 8.2 mg/dL (8.5-10.1); CARBON DIOXIDE 29 mmol/L (21-32); CHLORIDE 107 mmol/L (98-107); CREATININE 0.7 mg/dL (0.6-1.3); GLUCOSE 95 mg/dL (74-106); MAGNESIUM 2.1 mg/dL (1.8-2.4); PHOSPHOROUS 2.5 mg/dL (2.5-4.9); POTASSIUM 3.5 mmol/L (3.5-5.1); SODIUM SERUM 142 mmol/L (136-145); UREA NITROGEN, BLOOD 22 mg/dL (7-18)
[2023-06-02] MEDS: EZETIMIBE 10 MG TABLET PO SCH (09:44)
[2023-06-02] MEDS: TOLTERODINE LA 2 MG CAP.SR.24H PO SCH (09:44)
[2023-06-02] MEDS: DIVALPROEX SPRINKLE 125 MG CAP.SPRINK PO SCH ×2 (09:44→20:35)
[2023-06-02] MEDS: ENSURE ENLIVE (VAN) 240 ML LIQUID PO SCH ×2 (09:45→17:01)
[2023-06-02] MEDS: THIAMINE HCL 100 MG TABLET PO SCH (09:45)
[2023-06-02 11:43] VITALS: BP 113/50; TEMP 98.2; O2SAT 97
[2023-06-02] MEDS ORDERED: LIDOCAINE HCL 1% 20 ML VIAL IJ ONE (12:00)
[2023-06-02] MEDS: NYSTATIN SUSPENSION 5 ML LIQUID UDC PO SCH ×3 (13:00→20:34)
[2023-06-02 14:28] LABS: ANISOCYTOSIS 1+; BAND % (MANUAL) 2 % (0-10); BASOPHILS % (MANUAL) 1 % (0-2); LYMPHOCYTES % (MANUAL) 16 % (20-40); MONOCYTES % (MANUAL) 25 % (2-10); NEUTROPHILS % (MANUAL) 55 % (42-75); PLATELET ESTIMATE DECREASED; REACTIVE LYMPHOCYTES 1 % (0-0)
[2023-06-02 15:44] VITALS: BP 128/52; TEMP 98.2; O2SAT 97
[2023-06-02] MEDS: OLANZAPINE ZYDIS 5 MG TAB.RAPDIS PO SCH (20:35)
[2023-06-02] MEDS: DONEPEZIL 5 MG TABLET PO SCH (20:35)
[2023-06-02] MEDS: CLONAZEPAM 1 MG TABLET PO SCH (20:35)
[2023-06-02] MEDS: ATORVASTATIN 40 MG TABLET PO SCH (20:35)
[2023-06-02] MEDS: TAMSULOSIN HCL 0.4 MG CAP.SR.24H PO SCH (20:35)
[2023-06-02 21:22] VITALS: BP 98/56; TEMP 98.6; O2SAT 98
[2023-06-03 00:15] VITALS: BP 106/58; TEMP 98; O2SAT 99
[2023-06-03 04:52] VITALS: BP 98/57; TEMP 97.8; O2SAT 100
[2023-06-03] MEDS: NYSTATIN SUSPENSION 5 ML LIQUID UDC PO SCH ×4 (08:49→21:44)
[2023-06-03] MEDS: TOLTERODINE LA 2 MG CAP.SR.24H PO SCH (08:49)
[2023-06-03] MEDS: EZETIMIBE 10 MG TABLET PO SCH (08:49)
[2023-06-03] MEDS: DIVALPROEX SPRINKLE 125 MG CAP.SPRINK PO SCH ×2 (08:49→21:44)
[2023-06-03] MEDS: THIAMINE HCL 100 MG TABLET PO SCH (08:49)
[2023-06-03] MEDS: ENSURE ENLIVE (VAN) 240 ML LIQUID PO SCH ×2 (08:50→17:01)
[2023-06-03] MEDS: IV 1/2NS 1000 ML 1,000 ML IV PRN (09:16)
[2023-06-03 11:31] VITALS: BP 115/62; TEMP 98.1; O2SAT 96
[2023-06-03 12:01] LABS: CSF APPEARANCE HAZY (CLEAR); CSF COLOR REDDISH TINGE (COLORLESS); CSF TUBE NUMBER 2
[2023-06-03 12:04] LABS: CSF GLUCOSE 60 mg/dL (40-70)
[2023-06-03 12:19] LABS: CSF PROTEIN 134 mg/dL (15-45)
[2023-06-03] MEDS: CLOPIDOGREL 75 MG TABLET PO SCH (12:25)
[2023-06-03] MEDS: CLOTRIMAZOLE 1% CREAM 30 GM TUBE TOP SCH (15:56)
[2023-06-03 16:00] VITALS: BP 94/75; TEMP 98.8; O2SAT 96
[2023-06-03 17:23] LABS: CSF WHITE BLOOD CELL COUNT 21 /cumm (0-5)
[2023-06-03 20:00] VITALS: BP 116/64; TEMP 98.3; O2SAT 94
[2023-06-03] MEDS: CLONAZEPAM 1 MG TABLET PO SCH (21:44)
[2023-06-03] MEDS: TAMSULOSIN HCL 0.4 MG CAP.SR.24H PO SCH (21:44)
[2023-06-03] MEDS: DONEPEZIL 5 MG TABLET PO SCH (21:44)
[2023-06-03] MEDS: OLANZAPINE ZYDIS 5 MG TAB.RAPDIS PO SCH (21:44)
[2023-06-03] MEDS: ATORVASTATIN 40 MG TABLET PO SCH (21:44)
[2023-06-04 04:00] VITALS: BP 98/57; TEMP 97.3; O2SAT 94
[2023-06-04 07:37] LABS: BASOPHILS % (AUTO) 0.2 % (0.0-2.0); EOSINOPHILS % (AUTO) 0.3 % (0.0-7.0); HEMATOCRIT 35.3 % (36.7-47.1); HEMOGLOBIN 12.9 g/dL (12.5-16.3); LYMPHOCYTES # (AUTO) 1.3 K/uL (0.8-4.8); LYMPHOCYTES % (AUTO) 13.2 % (20.5-51.5); MEAN CORPUSCULAR HEMOGLOBIN 33.3 uug (23.8-33.4); MEAN CORPUSCULAR HGB CONC 36 g/dL (32.5-36.3); MEAN CORPUSCULAR VOLUME 91.3 fL (73.0-96.2); MONOCYTES # (AUTO) 2.6 K/uL (0.1-1.30); MONOCYTES % (AUTO) 26.1 % (0.0-11.0); NEUTROPHILS # (AUTO) 6.1 K/uL (1.8-8.9); NEUTROPHILS % (AUTO) 60.2 % (38.5-71.5); PLATELET COUNT (AUTO) 126 K/uL (152-348); RED BLOOD CELL COUNT(AUTO) 3.87 MIL/uL (4.06-5.63); RED CELL DISTRIBUTION WIDTH 16.3 % (12.1-16.2); WHITE BLOOD COUNT (AUTO) 10.1 K/uL (3.6-10.2)
[2023-06-04 07:45] LABS: DIFFERENTIAL COMMENT 1
[2023-06-04 08:00] VITALS: BP 109/56; TEMP 98.1; O2SAT 98
[2023-06-04 08:17] LABS: CALCIUM 7.9 mg/dL (8.5-10.1); CREATININE 0.7 mg/dL (0.6-1.3); POTASSIUM 3.9 mmol/L (3.5-5.1)
[2023-06-04] MEDS: EZETIMIBE 10 MG TABLET PO SCH (08:29)
[2023-06-04] MEDS: DIVALPROEX SPRINKLE 125 MG CAP.SPRINK PO SCH ×2 (08:30→21:04)
[2023-06-04] MEDS: THIAMINE HCL 100 MG TABLET PO SCH (08:30)
[2023-06-04] MEDS: CLOPIDOGREL 75 MG TABLET PO SCH (08:30)
[2023-06-04] MEDS: TOLTERODINE LA 2 MG CAP.SR.24H PO SCH (08:30)
[2023-06-04] MEDS: ASPIRIN EC 81 MG TABLET.DR PO SCH (08:31)
[2023-06-04] MEDS: NYSTATIN SUSPENSION 5 ML LIQUID UDC PO SCH ×4 (08:31→21:10)
[2023-06-04] MEDS: ENSURE ENLIVE (VAN) 240 ML LIQUID PO SCH ×2 (08:32→17:37)
[2023-06-04] MEDS: CLOTRIMAZOLE 1% CREAM 30 GM TUBE TOP SCH ×2 (08:32→16:36)
[2023-06-04] MEDS: CEFTRIAXONE 2 G in IV DEXTROSE 5% 100 ML IV SCH ×2 (10:15→21:56)
[2023-06-04] MEDS: IV 1/2NS 1000 ML 1,000 ML IV PRN (10:24)
[2023-06-04 11:31] VITALS: BP 97/63; TEMP 98.4; O2SAT 99
[2023-06-04 11:31] LABS: ANISOCYTOSIS 1+; BAND % (MANUAL) 1 % (0-10); EOSINOPHILS % (MANUAL) 1 % (0-8); LYMPHOCYTES % (MANUAL) 12 % (20-40); MONOCYTES % (MANUAL) 15 % (2-10); NEUTROPHILS % (MANUAL) 71 % (42-75); PLATELET ESTIMATE MARKED DECREASED
[2023-06-04] MEDS ORDERED: LORAZEPAM 2 MG/1 ML VIAL IV PRN (13:45)
[2023-06-04 15:34] VITALS: BP 99/41; TEMP 98.3; O2SAT 97
[2023-06-04 20:00] VITALS: BP 109/62; TEMP 98.5; O2SAT 96
[2023-06-04] MEDS: OLANZAPINE ZYDIS 5 MG TAB.RAPDIS PO SCH (21:04)
[2023-06-04] MEDS: CLONAZEPAM 1 MG TABLET PO SCH (21:04)
[2023-06-04] MEDS: ATORVASTATIN 40 MG TABLET PO SCH (21:04)
[2023-06-04] MEDS: TAMSULOSIN HCL 0.4 MG CAP.SR.24H PO SCH (21:14)
[2023-06-04] MEDS: DONEPEZIL 5 MG TABLET PO SCH (21:14)
[2023-06-05 04:00] VITALS: BP 100/54; TEMP 97.8; O2SAT 95
[2023-06-05 06:28] LABS: BASOPHILS # (AUTO) 0.1 K/UL (0.0-0.2); BASOPHILS % (AUTO) 1.5 % (0.0-2.0); EOSINOPHILS % (AUTO) 0.3 % (0.0-7.0); HEMATOCRIT 36.1 % (36.7-47.1); HEMOGLOBIN 12.8 g/dL (12.5-16.3); LYMPHOCYTES # (AUTO) 0.8 K/uL (0.8-4.8); LYMPHOCYTES % (AUTO) 10.2 % (20.5-51.5); MEAN CORPUSCULAR HEMOGLOBIN 32.7 uug (23.8-33.4); MEAN CORPUSCULAR HGB CONC 35 g/dL (32.5-36.3); MEAN CORPUSCULAR VOLUME 92.3 fL (73.0-96.2); MONOCYTES % (AUTO) 25.4 % (0.0-11.0); NEUTROPHILS % (AUTO) 62.6 % (38.5-71.5); PLATELET COUNT (AUTO) 123 K/uL (152-348); RED BLOOD CELL COUNT(AUTO) 3.91 MIL/uL (4.06-5.63); RED CELL DISTRIBUTION WIDTH 16.3 % (12.1-16.2)
[2023-06-05 06:58] LABS: DIFFERENTIAL COMMENT 1
[2023-06-05 07:04] LABS: CREATININE 0.7 mg/dL (0.6-1.3); MAGNESIUM 2.1 mg/dL (1.8-2.4); PHOSPHOROUS 2.8 mg/dL (2.5-4.9); POTASSIUM 3.6 mmol/L (3.5-5.1)
[2023-06-05 08:00] VITALS: BP 117/60; TEMP 97.6; O2SAT 96
[2023-06-05] MEDS: EZETIMIBE 10 MG TABLET PO SCH (08:11)
[2023-06-05] MEDS: THIAMINE HCL 100 MG TABLET PO SCH (08:11)
[2023-06-05] MEDS: TOLTERODINE LA 2 MG CAP.SR.24H PO SCH (08:12)
[2023-06-05] MEDS: DIVALPROEX SPRINKLE 125 MG CAP.SPRINK PO SCH ×2 (08:12→21:50)
[2023-06-05] MEDS: NYSTATIN SUSPENSION 5 ML LIQUID UDC PO SCH ×4 (08:13→21:51)
[2023-06-05] MEDS: CLOTRIMAZOLE 1% CREAM 30 GM TUBE TOP SCH ×2 (08:13→17:21)
[2023-06-05] MEDS: ENSURE ENLIVE (VAN) 240 ML LIQUID PO SCH ×2 (08:13→17:51)
[2023-06-05] MEDS: ASPIRIN EC 81 MG TABLET.DR PO SCH (09:00)
[2023-06-05] MEDS: CLOPIDOGREL 75 MG TABLET PO SCH (09:00)
[2023-06-05] MEDS: CEFTRIAXONE 2 G in IV DEXTROSE 5% 100 ML IV SCH ×2 (09:41→21:51)
[2023-06-05 10:19] LABS: LYMPHOCYTES % (MANUAL) 22 % (20-40); MONOCYTES % (MANUAL) 12 % (2-10); NEUTROPHILS % (MANUAL) 66 % (42-75)
[2023-06-05 10:21] LABS: ANISOCYTOSIS 1+; PLATELET ESTIMATE DECREASED
[2023-06-05 11:30] VITALS: BP 120/57; TEMP 98.2; O2SAT 98
[2023-06-05] MEDS: CLONAZEPAM 0.5 MG TABLET PO PRN (13:06)
[2023-06-05 15:44] VITALS: BP 119/69; TEMP 98; O2SAT 97
[2023-06-05 15:54] LABS: CSF GLUCOSE 60 mg/dL (40-70); CSF PROTEIN 53 mg/dL (15-45)
[2023-06-05 17:06] LABS: CRYPTOCOCCUS AG CSF Negative (Negative)
[2023-06-05 20:46] VITALS: BP 95/54; TEMP 98; O2SAT 90
[2023-06-05] MEDS: OLANZAPINE ZYDIS 5 MG TAB.RAPDIS PO SCH (21:50)
[2023-06-05] MEDS: CLONAZEPAM 1 MG TABLET PO SCH (21:50)
[2023-06-05] MEDS: TAMSULOSIN HCL 0.4 MG CAP.SR.24H PO SCH (21:50)
[2023-06-05] MEDS: DONEPEZIL 5 MG TABLET PO SCH (21:50)
[2023-06-05] MEDS: ATORVASTATIN 40 MG TABLET PO SCH (21:50)
[2023-06-06] MEDS: IV 1/2NS 1000 ML 1,000 ML IV PRN (05:35)
[2023-06-06 06:49] VITALS: BP 95/56; TEMP 97.9; O2SAT 94
[2023-06-06] MEDS: CEFTRIAXONE 2 G in IV DEXTROSE 5% 100 ML IV SCH (09:32)
[2023-06-06] MEDS: EZETIMIBE 10 MG TABLET PO SCH (09:32)
[2023-06-06] MEDS: THIAMINE HCL 100 MG TABLET PO SCH (09:32)
[2023-06-06] MEDS: CLOPIDOGREL 75 MG TABLET PO SCH (09:32)
[2023-06-06] MEDS: DIVALPROEX SPRINKLE 125 MG CAP.SPRINK PO SCH (09:32)
[2023-06-06] MEDS: ASPIRIN EC 81 MG TABLET.DR PO SCH (09:32)
[2023-06-06] MEDS: TOLTERODINE LA 2 MG CAP.SR.24H PO SCH (09:32)
[2023-06-06] MEDS: CLOTRIMAZOLE 1% CREAM 30 GM TUBE TOP SCH (09:33)
[2023-06-06] MEDS: NYSTATIN SUSPENSION 5 ML LIQUID UDC PO SCH (09:33)
[2023-06-06] MEDS: ENSURE ENLIVE (VAN) 240 ML LIQUID PO SCH (09:33)
[2023-06-06 11:00] VITALS: BP 99/98; TEMP 97.8; O2SAT 96
[2023-06-06 22:06] LABS: *HSV 1/2 PCR 1DNA CSF Negative (Negative); *HSV 1/2 PCR 2DNA CSF Negative (Negative)
[2023-06-07 16:06] LABS: CRYPTOCOCCUS AG CSF Negative (Negative)
== END 2023-06-06 14:30 | DRG 640 ==
LOC: MEDSURG3 12:26
PROVIDERS: ADMIT Nurse Practitioner Acute Care; ATTEND Nurse Practitioner Acute Care
PROC: 009U3ZX Drainage of Spinal Canal, Percutaneous Approach, Diagnostic (ICD-10-PCS; principal; 2023-06-02)
DX: E87.0 Hyperosmolality and hypernatremia (principal); G93.41 Metabolic encephalopathy; E51.2 Wernicke's encephalopathy; R45.851 Suicidal ideations; B37.0 Candidal stomatitis; F03.92 Unspecified dementia, unspecified severity, with psychotic disturbance; F03.93 Unspecified dementia, unspecified severity, with mood disturbance; E87.6 Hypokalemia; F10.90 Alcohol use, unspecified, uncomplicated; R79.89 Other specified abnormal findings of blood chemistry; N40.0 Benign prostatic hyperplasia without lower urinary tract symptoms; I25.10 Atherosclerotic heart disease of native coronary artery without angina pectoris; Z78.1 Physical restraint status; I10 Essential (primary) hypertension; E78.5 Hyperlipidemia, unspecified; Z79.899 Other long term (current) drug therapy; Z91.81 History of falling; F32.A Depression, unspecified
CPT/HCPCS: 36415; 62270; 70030-TC; 70553; 71045; 83735; 84100; 84157; 85025; 85610; 85730; 89051; 95819; A4663; A9575; C1758; G0378; J0696; J3490